=== PATIENT | male | born 1955 | race Caucasian/White ===

== ENCOUNTER 2017-01-18 14:20 | Outpatient (CLI) | payer OTHER ==
[~2017-01-18] VITALS: Ht 181.6 cm; Wt 95.0 kg
[2017-01-18] MEDS ORDERED: OXYC-279 PO (14:43)
[2017-01-18] MEDS ORDERED: APIX2.5T PO (14:43)
[2017-01-18] MEDS ORDERED: [UNRECOGNIZED DRUG - CODE] BUCCAL (14:43)
[2017-01-18] MEDS ORDERED: CHOL100062 PO (14:43)
[2017-01-18] MEDS ORDERED: PANT40TA4 PO (14:43)
[2017-01-18] MEDS ORDERED: SPIR25TA PO (14:43)
[2017-01-18] MEDS ORDERED: NITR0.4T6 SL (14:43)
[2017-01-18] MEDS ORDERED: LISI10TA2 PO (14:43)
[2017-01-18] MEDS ORDERED: HYDR-906 PO (14:43)
[2017-01-18] MEDS ORDERED: METF500T4 PO (14:43)
[2017-01-18] MEDS ORDERED: METO25TA7 PO (14:43)
[2017-01-18 14:44] VITALS: BP 113/69; PULSE 138; RESP 24; Ht 181.6 cm; Wt 95.0 kg
--- NOTE | 2017-01-21 15:37 | PN ---
Date/Time of Note Date/Time of Note DATE: 01/21/17 TIME: 15:29 Outpatient Progress Note Chief Complaint Chest pain/A. fib/diabetes/PUD/cardiomyopathy/cirrhosis HPI Chest pain/patient was recently hospitalized with a chest pain, patient has no chest pain at present, no problem in breathing, A. fib/patient has A. fib, and atrial flutter, patient on Eliquis, Diabetes/no pleuritic supple due to hypoglycemia, gastroparesis, PUD/no nausea vomiting, no heartburn, on medication, no side effect, Cardiomyopathy/patient has i nonischemic cardiomyopathy, no PND orthopnea, Cirrhosis/patient has cirrhosis of liver, and has ascites, no shortness of breath, Review of Systems Const: No Fever, no chills, no Wt. loss, no Fatigue, normal appetite, no diaphoresis. Eyes: No pain, no discharge, no redness, no visual change, no foreign body. ENT: No pain, no bleeding, no congestion, no sore throat, no dysphagia, no discharge or rhinitis. Lymph: No adenopathy, no tender nodes, no lymphedema. Resp: No SOB, no cough, no sputum, no wheezing, no chest pain. CV: No chest pain, at present, patient was admitted with a chest pain, no palpitaions, no ANDERSON, no PND, no edema. GI: Normal appetite, no pain, no nausea, no vomiting, no diarrhea, no blood, no constipation patient has abdominal distention, : No frequency, no urgency, no dysuria, no hematuria, no flank pain, no discharge, no bleeding. Musc: No bone/joint pain, no back pain, no neck pain, no knee pain, no restricted ROM. Skin: No rash, no skin lesions, no erythema, no laceration, no bruising, no pruritus. Neuro: No KOROMA, no dizziness, no syncope, no seizure, no focal-weakness. Endo: No polyuria, no polydypsia, no dry-skin, no temp-intolerance. Psych: No hallucinations, no depression, no anxiety, no suicidal ideation. Ext: No edema, no pain, no ulcer, no weakness. Physical Exam Vital Signs Date Time Temp Pulse Resp B/P Pulse Ox O2 Delivery O2 Flow Rate FiO2 01/18/17 14:44 98.0 138 24 113/69 96 General Appearance: A 61 year-old male who appears well-developed, well- nourished, in no acute distress. HEENT: Head normocephalic, atraumatic. Pupils equal, round, reactive to light and accommodate. Sclerae are no jaundice. Nasal turbinates pink without erythema or nasal discharge. Mucous membranes pink and moist without lesions. Oropharynx clear without any exudate or discharge. NECK: Supple. Trachea midline, No thyromegaly, No cervical lymphadenopathy, No mass, No carotid bruits, No JVD, Carotid pulses 2+ bilaterally. PULMONARY: Clear to auscultaion bilaterally, No retractions, Chest expansion symmetric bilaterally, no rales, no ronchi, no dulness on percussion. CARDIAC: Normal SI and S2, Regular rate and rythm, no murmur, gallop, or rub. GASTROINTESTINAL: Abdomen is soft, non-tender, Non Rigid, patient has distention , and ascites present, positive bowel sounds x4 quadrants, Liver normal., SKIN: Warm, dry, no rash, no bruise, no echmosis. No eczema, no laceration, EXTREMITIES: Bilateral lower extremities mild edema, no phlabitus, pulse palpable, no contracture. MUSCULOSKELETAL: Spine Normal, Non-tender, Normal range of motion, No swelling, no deformity, no clubbing, or cyanosis, the patient has no edema to bilateral lower extremities, dorsalis pedis pulses palpable bilaterally. NEUROLOGIC: The patient is awake, alert, oriented, responding to yes/no questions appropriately, moving all extremities, cranial nerve intact, normal strenght, normal power, normal coordination, normal gait. Allergies Coded Allergies: No Known Drug Allergies (Verified Allergy, Unknown, 01/18/17) PMH A. fib/diabetes/cardiomyopathy/cirrhosis/chest pain resolved Social Hx No smoking or drinking at present, Family Hx Noncontributory Assessment/Plan Impression Chest pain resolved A. fib Diabetes PUD Nonischemic cardiomyopathy Cirrhosis Bilateral ankle edema Plan Patient education done about a bowel disease, patient has bilateral ankle edema , patient is only on Aldactone, We will start Lasix 40 mg daily, Monitor weight closely, monitor blood sugar blood pressure etc., patient advised the patient has shortness of breath go to the ER, patient may need abdominal paracentesis, patient was recently discharged, patient had few liter of fluid taken out, Patient encouraged to follow with the primary care physician, Medications Home Meds Reported Medications Spironolactone* (Aldactone*) 25 Mg Tablet, 25 MG PO DAILY, #30 TAB 01/18/17 Pantoprazole* (Pantoprazole*) 40 Mg Tablet.dr, 40 MG PO AC BREAKFAST, TAB 01/18/17 Nitroglycerin* (Nitroglycerin* SL) 0.4 Mg Tab.subl, 0.4 MG SL Q5MIN Y for CHEST PAIN, BOTTLE 01/18/17 Nicotine Polacrilex (Nicotine Gum) 4 Mg Gum, 4 MG BUCCAL BID, #1 BOX 01/18/17 Metoprolol Succinate* (Toprol XL*) 25 Mg Tab.sr.24h, 25 MG PO DAILY, #30 TAB 01/18/17 Metformin Hcl* (Metformin Hcl*) 500 Mg Tablet, 500 MG PO WITH BREAKFAST DINNE, # 60 TAB 01/18/17 Lisinopril* (Lisinopril*) 10 Mg Tablet, 10 MG PO DAILY, #30 TAB 01/18/17 Hydrocodone/Acetaminophen ([place] 5-325 Tablet) 1 Each Tablet, 1-2 EACH PO Q6 for PAIN LEVEL 1-5, TAB 01/18/17 Cholecalciferol* (Vitamin D3*) 1,000 Unit Tablet, 2000 UNIT PO DAILY, TAB 01/18/17 Apixaban* (Eliquis*) 2.5 Mg Tablet, 5 MG PO BID, TAB 01/18/17 Oxycodone HCl/Acetaminophen (Percocet 5-325 mg Tablet) 1 Each Tablet, 1 EACH PO Q6 Y for PAIN LEVEL 7-10, TAB 01/18/17 [address] WOODWARD MD Jan 21, 2017 15:37
== END 2017-01-18 17:00 | disposition home or self-care (01) ==
LOC: DCC 14:20
PROVIDERS: ATTEND Internal Medicine
DX: R07.9 Chest pain, unspecified (principal); I48.91 Unspecified atrial fibrillation; E11.9 Type 2 diabetes mellitus without complications; K27.9 Peptic ulcer, site unspecified, unspecified as acute or chronic, without hemorrhage or perforation; I42.9 Cardiomyopathy, unspecified; K74.60 Unspecified cirrhosis of liver; R60.0 Localized edema; Z79.84 Long term (current) use of oral hypoglycemic drugs

== ENCOUNTER 2017-02-01 13:40 | Outpatient (CLI) | payer OTHER ==
[~2017-02-01] VITALS: Ht 181.6 cm; Wt 96.1 kg
[~2017-02-01 13:40] MED LIST: APIX2.5T PO; CHOL100062 PO; HYDR-906 PO; LISI10TA2 PO; METF500T4 PO; METO25TA7 PO; NITR0.4T6 SL; OXYC-279 PO; PANT40TA4 PO; SPIR25TA PO; [UNRECOGNIZED DRUG - CODE] BUCCAL
[2017-02-01 14:05] VITALS: BP 115/69; PULSE 70; RESP 18; Ht 181.6 cm; Wt 96.1 kg
--- NOTE | 2017-02-01 15:39 | PN ---
Date/Time of Note Date/Time of Note DATE: 02/01/17 TIME: 15:36 Outpatient Progress Note Chief Complaint A. fib/diabetes/PUD/cardiomyopathy/cirrhosis HPI A. fib/no chest pain, palpitations syncope, no bruises, Diabetes/no polydipsia polyuria hypoglycemia, pressure and blood sugar control at present the patient, PUD/no nausea vomiting, no hematemesis melena, patient had EGD and colonoscopy, patient had polyp which was removed, Cardiomyopathy/no PND orthopnea or ankle edema, Cirrhosis/no nausea vomiting, hematemesis melena, patient slightly better, Review of Systems Const: No Fever, no chills, no Wt. loss, no Fatigue, normal appetite, no diaphoresis. Eyes: No pain, no discharge, no redness, no visual change, no foreign body. ENT: No pain, no bleeding, no congestion, no sore throat, no dysphagia, no discharge or rhinitis. Lymph: No adenopathy, no tender nodes, no lymphedema. Resp: Minimal SOB, no cough, no sputum, no wheezing, no chest pain. CV: No chest pain, no palpitaions, no ANDERSON, no PND, no edema. GI: Normal appetite, minimal pain, no nausea, no vomiting, no diarrhea, no blood , no constipation patient has umbilical hernia, reducible,. : No frequency, no urgency, no dysuria, no hematuria, no flank pain, no discharge, no bleeding. Musc: No bone/joint pain, no back pain, no neck pain, no knee pain, no restricted ROM. Skin: No rash, no skin lesions, no erythema, no laceration, no bruising, no pruritus. Neuro: No KOROMA, no dizziness, no syncope, no seizure, no focal-weakness. Endo: No polyuria, no polydypsia, no dry-skin, no temp-intolerance. Psych: No hallucinations, no depression, no anxiety, no suicidal ideation. Ext: No edema, no pain, no ulcer, no weakness. Physical Exam Vital Signs Date Time Temp Pulse Resp B/P Pulse Ox O2 Delivery O2 Flow Rate FiO2 02/01/17 14:05 97.7 70 18 115/69 98 Room Air General Appearance: A 61 year-old male who appears well-developed, well- nourished, in no acute distress. HEENT: Head normocephalic, atraumatic. Pupils equal, round, reactive to light and accommodate. Sclerae are no jaundice. Nasal turbinates pink without erythema or nasal discharge. Mucous membranes pink and moist without lesions. Oropharynx clear without any exudate or discharge. NECK: Supple. Trachea midline, No thyromegaly, No cervical lymphadenopathy, No mass, No carotid bruits, No JVD, Carotid pulses 2+ bilaterally. PULMONARY: Clear to auscultaion bilaterally, No retractions, Chest expansion symmetric bilaterally, no rales, no ronchi, no dulness on percussion. CARDIAC: Normal SI and S2, Regular rate and rythm, no murmur, gallop, or rub. GASTROINTESTINAL: Abdomen is soft, non-tender, Non Rigid, No distention, Positive bowel sounds x4 quadrants, Liver normal. Umbilical hernia, minimal ascites, SKIN: Warm, dry, no rash, no bruise, no echmosis. No pruritus, EXTREMITIES: Bilateral lower extremities normal, no edema, no phlabitus, pulse palpable, no contracture. MUSCULOSKELETAL: Spine Normal, Non-tender, Normal range of motion, No swelling, no deformity, no clubbing, or cyanosis, the patient has no edema to bilateral lower extremities, dorsalis pedis pulses palpable bilaterally. NEUROLOGIC: The patient is awake, alert, oriented, responding to yes/no questions appropriately, moving all extremities, cranial nerve intact, normal strenght, normal power, normal coordination, normal gait. Allergies Coded Allergies: No Known Drug Allergies (Verified Allergy, Unknown, 01/18/17) PMH No change Social Hx No change Family Hx No change Assessment/Plan Patient has all the medication, no need refill, impression A. fib/diabetes/PUD/cardiomyopathy/cirrhosis Plan Patient education done, patient encouraged to control the blood pressure blood sugar, Increase activity slowly, Patient encouraged to follow with the primary care physician, Patient to follow with the GI for biopsy report Patient has all the medication, no need for refill at present,, Medications Home Meds Reported Medications Spironolactone* (Aldactone*) 25 Mg Tablet, 25 MG PO DAILY, #30 TAB 01/18/17 Pantoprazole* (Pantoprazole*) 40 Mg Tablet.dr, 40 MG PO AC BREAKFAST, TAB 01/18/17 Nitroglycerin* (Nitroglycerin* SL) 0.4 Mg Tab.subl, 0.4 MG SL Q5MIN Y for CHEST PAIN, BOTTLE 01/18/17 Nicotine Polacrilex (Nicotine Gum) 4 Mg Gum, 4 MG BUCCAL BID, #1 BOX 01/18/17 Metoprolol Succinate* (Toprol XL*) 25 Mg Tab.sr.24h, 25 MG PO DAILY, #30 TAB 01/18/17 Metformin Hcl* (Metformin Hcl*) 500 Mg Tablet, 500 MG PO WITH BREAKFAST DINNE, # 60 TAB 01/18/17 Lisinopril* (Lisinopril*) 10 Mg Tablet, 10 MG PO DAILY, #30 TAB 01/18/17 Cholecalciferol* (Vitamin D3*) 1,000 Unit Tablet, 2000 UNIT PO DAILY, TAB 01/18/17 Apixaban* (Eliquis*) 2.5 Mg Tablet, 5 MG PO BID, TAB 01/18/17 Oxycodone HCl/Acetaminophen (Percocet 5-325 mg Tablet) 1 Each Tablet, 1 EACH PO Q6 Y for PAIN LEVEL 7-10, TAB 01/18/17 Discontinued Reported Medications Hydrocodone/Acetaminophen ([place] 5-325 Tablet) 1 Each Tablet, 1-2 EACH PO Q6 for PAIN LEVEL 1-5, TAB 01/18/17 RD WOODWARD MD Feb 01, 2017 15:39
== END 2017-02-01 16:46 | disposition home or self-care (01) ==
LOC: DCC 13:40
PROVIDERS: ATTEND Internal Medicine
DX: I48.91 Unspecified atrial fibrillation (principal); K27.9 Peptic ulcer, site unspecified, unspecified as acute or chronic, without hemorrhage or perforation; I42.9 Cardiomyopathy, unspecified; E11.9 Type 2 diabetes mellitus without complications; Z79.84 Long term (current) use of oral hypoglycemic drugs